=== PATIENT | female | born 1955 | race Hispanic/Latino ===

== ENCOUNTER 2018-11-20 19:29 | Emergency (ER) | payer OTHER ==
[2018-11-20] MEDS ORDERED: ASPIRIN 325 MG TABLET ONE (19:44)
[2018-11-20] MEDS ORDERED: DIAZEPAM 5 MG TABLET ONE (19:44)
[2018-11-20 20:02] LABS: BASOPHILS % (AUTO) 0.6 % (0.0-5.0); EOSINOPHILS % (AUTO) 1.1 % (0.0-8.0); HEMATOCRIT 40.5 % (36-48); LYMPHOCYTES % (AUTO) 22.1 % (21.0-51.0); MEAN CORPUSCULAR HEMOGLOBIN 30.7 pg (27.0-33.0); MEAN CORPUSCULAR HGB CONC 34.3 g/dL (32.0-36.0); MEAN CORPUSCULAR VOLUME 89.6 fL (79-99); MONOCYTES % (AUTO) 6.5 % (3.0-13.0); NEUTROPHILS % (AUTO) 69.7 % (40.0-77.0); NUCLEATED RED BLOOD CELLS 0.1 % (0.0-0.19); PLATELET COUNT (AUTO) 233 K/uL (130-400); RED BLOOD CELL COUNT(AUTO) 4.52 MIL/uL (4.00-5.50); RED CELL DISTRIBUTION WIDTH 13.2 % (11.0-15.5)
[2018-11-20 20:10] LABS: CREATININE 0.8 mg/dL (0.5-1.5); POTASSIUM 3.2 mmol/L (3.5-5.1)
[2018-11-20 20:15] LABS: ALBUMIN 3.9 g/dL (3.5-5.0); BILIRUBIN,TOTAL 0.4 mg/dL (0.2-1.0); TOTAL PROTEIN, SERUM 7.3 g/dL (6.0-8.3)
== END 2018-11-21 00:24 | disposition home or self-care (01) ==
LOC: EDH 19:29
DX: G62.9 Polyneuropathy, unspecified (principal); R51 Headache; M54.2 Cervicalgia
CPT/HCPCS: 36415; 70450; 70551; 80053; 82550; 84484; 85025; 93005

== ENCOUNTER 2018-12-18 06:51 | Inpatient (IN) | payer OTHER ==
[~2018-12-18] VITALS: Ht 160 cm; Wt 59.0 kg
[2018-12-18] MEDS ORDERED: LIDOCAINE HCL 2% VISCOUS 15 ML UDCUP ONE (07:46)
[2018-12-18] MEDS ORDERED: MAG HYDROX/AL HYDROX/SIMETH ES 30 ML SUSP UDCUP ONE (07:47)
[2018-12-18] MEDS ORDERED: ONDANSETRON HCL 4 MG/2 ML VIAL ONE (07:47)
[2018-12-18] MEDS ORDERED: SODIUM CHLORIDE 0.9% 500ML 500 ML IV ONE (07:47)
[2018-12-18 08:06] LABS: APPEARANCE,URINE CLEAR (CLEAR); BILIRUBIN,URINE NEGATIVE (NEGATIVE); COLOR,URINE YELLOW (YELLOW); GLUCOSE, URINE (UA) NEGATIVE (NEGATIVE); KETONES,URINE NEGATIVE (NEGATIVE); LEUKOCYTE ESTERASE ,URINE NEGATIVE (NEGATIVE); NITRATE,URINE NEGATIVE (NEGATIVE); OCCULT BLOOD,URINE MODERATE (NEGATIVE); PROTEIN,URINE NEGATIVE (NEGATIVE); UROBILINOGEN,URINE 0.2 mg/dL (0.2-1.0)
[2018-12-18] MEDS ORDERED: ACETAMINOPHEN 325 MG TAB ONE (08:06)
[2018-12-18 08:27] LABS: CREATININE 0.7 mg/dL (0.5-1.5); POTASSIUM 4.2 mmol/L (3.5-5.1)
[2018-12-18 08:34] LABS: ALBUMIN 3.4 g/dL (3.5-5.0); BASOPHILS % (AUTO) 0.6 % (0.0-5.0); BILIRUBIN,TOTAL 0.2 mg/dL (0.2-1.0); EOSINOPHILS % (AUTO) 3.3 % (0.0-8.0); HEMATOCRIT 39.3 % (36-48); LYMPHOCYTES % (AUTO) 30.1 % (21.0-51.0); MEAN CORPUSCULAR HEMOGLOBIN 30.2 pg (27.0-33.0); MEAN CORPUSCULAR HGB CONC 33.6 g/dL (32.0-36.0); MEAN CORPUSCULAR VOLUME 89.8 fL (79-99); MONOCYTES % (AUTO) 6.3 % (3.0-13.0); NEUTROPHILS % (AUTO) 59.7 % (40.0-77.0); PLATELET COUNT (AUTO) 221 K/uL (130-400); RED BLOOD CELL COUNT(AUTO) 4.37 MIL/uL (4.00-5.50); RED CELL DISTRIBUTION WIDTH 13.4 % (11.0-15.5); TOTAL PROTEIN, SERUM 6.4 g/dL (6.0-8.3); WHITE BLOOD COUNT (AUTO) 7.2 K/uL (4.8-10.8)
[2018-12-18 08:47] LABS: BACTERIA,URINE Many /HPF (None Seen); SQUAMOUS EPITHELIAL CELL,UR Rare /HPF (0-2); WBC,URINE 0-1 /HPF (0-1)
[2018-12-18] MEDS ORDERED: MORPHINE SULFATE 4 MG/1ML SYG ONE (09:52)
[2018-12-18] MEDS: DEXTROSE 5 % AND 0.9 % NACL 1,000 ML IV SCH ×2 (10:45→21:07)
[2018-12-18] MEDS ORDERED: LIDOCAINE HCL 2% VISCOUS 30 ML, MAG HYDROX/AL HYDROX/SIMETH 30 ML, BELLADONNA-PHENOBARB... PO PRN ×3 (10:45)
[2018-12-18] MEDS ORDERED: ACETAMINOPHEN 325 MG TAB PO PRN (10:45)
[2018-12-18 17:42] VITALS: BP 128/64
--- NOTE | 2018-12-18 18:15 | NUR ---
REPORT RECEIVED FROM SOBEIDA VO (ED). PATIENT ADMITTED UNDER DR. GOLDBERG'S SERVICES FOR C/O EPIGASTRIC PAIN AND NAUSEA. DX: ACUTE PANCREATITIS. PATIENT DENIES ANY PAIN AT THIS TIME.
[2018-12-18] MEDS: FAMOTIDINE/PF 20 MG/2 ML VIAL IV SCH (19:33)
[2018-12-18 20:00] VITALS: BP 136/71
[2018-12-18] MEDS ORDERED: SIMETH PO PRN ×3 (20:00)
[2018-12-18] MEDS ORDERED: AL HYDROX PO PRN ×3 (20:00)
[2018-12-18] MEDS ORDERED: MAG HYDROX PO PRN ×3 (20:00)
[2018-12-18] MEDS ORDERED: VISCOUS PO PRN ×3 (20:00)
[2018-12-18] MEDS ORDERED: [UNRECOGNIZED DRUG - OTHER] PO PRN ×3 (20:00)
[2018-12-18] MEDS ORDERED: LIDOCAINE HCL 2% PO PRN ×3 (20:00)
[2018-12-19] VITALS: BP 129/67
[2018-12-19] MEDS: ONDANSETRON HCL 4 MG/2 ML VIAL IV PRN (02:14)
[2018-12-19] MEDS: MORPHINE SULFATE 2 MG/ML 1ML SYG IV PRN (02:15)
[2018-12-19 04:00] VITALS: BP 98/54
[2018-12-19] MEDS: DEXTROSE 5 % AND 0.9 % NACL 1,000 ML IV SCH ×2 (04:57→16:45)
[2018-12-19 07:37] LABS: BASOPHILS % (AUTO) 0.1 % (0.0-5.0); EOSINOPHILS % (AUTO) 0.2 % (0.0-8.0); HEMATOCRIT 37.5 % (36-48); LYMPHOCYTES % (AUTO) 10.9 % (21.0-51.0); MEAN CORPUSCULAR HEMOGLOBIN 30.1 pg (27.0-33.0); MEAN CORPUSCULAR HGB CONC 33.1 g/dL (32.0-36.0); MEAN CORPUSCULAR VOLUME 90.9 fL (79-99); MONOCYTES % (AUTO) 4.8 % (3.0-13.0); PLATELET COUNT (AUTO) 202 K/uL (130-400); RED BLOOD CELL COUNT(AUTO) 4.13 MIL/uL (4.00-5.50); RED CELL DISTRIBUTION WIDTH 13.5 % (11.0-15.5); WHITE BLOOD COUNT (AUTO) 11.3 K/uL (4.8-10.8)
[2018-12-19 07:45] LABS: CREATININE 0.7 mg/dL (0.5-1.5); POTASSIUM 4.3 mmol/L (3.5-5.1)
[2018-12-19 08:00] VITALS: BP 117/58
[2018-12-19] MEDS: FAMOTIDINE/PF 20 MG/2 ML VIAL IV SCH ×2 (08:07→20:34)
[2018-12-19] MEDS: ACETAMINOPHEN 325 MG TAB PO PRN ×2 (08:08→21:37)
[2018-12-19] MEDS: ENOXAPARIN SODIUM 40 MG/0.4 ML SYRINGE SQ SCH (08:12)
[2018-12-19 11:19] LABS: ALBUMIN 2.8 g/dL (3.5-5.0); BILIRUBIN,TOTAL 0.5 mg/dL (0.2-1.0); CREATININE 0.7 mg/dL (0.5-1.5); POTASSIUM 3.3 mmol/L (3.5-5.1); TOTAL PROTEIN, SERUM 5.9 g/dL (6.0-8.3)
[2018-12-19 12:00] VITALS: BP 101/48
[2018-12-19 16:00] VITALS: BP 130/64
--- NOTE | 2018-12-19 16:08 | NUR ---
INITIAL: Met w pt and family this afternoon to discuss dcp. Pt mentions that she lives w spouse. Prior to admission was independent w ambulation and ADLs. Does not own any DME or receive services. Per pt she feels safe and comfortable to return home at [place]. She mentions that if needs any assistance her dtr Jasmin will be able to assist. CM to continue to follow and wait for Md recommendations. Addendum: 12/19/18 at 1610 by CARMEN CROOKS CM Amended: Links added.
[2018-12-19 20:00] VITALS: BP 138/63
[2018-12-19] MEDS: ZOSYN 3.375GM+NS 50ML 50 ML IV SCH (20:34)
[2018-12-19] MEDS ORDERED: LIDOCAINE HCL-MPF 1% 2ML VIAL IVP PRN (23:45)
[2018-12-19] MEDS ORDERED: POTASSIUM CHLORIDE 10% ELIXIR 20 MEQ/15 ML UDCUP PO PRN (23:45)
[2018-12-19] MEDS ORDERED: POTASSIUM CHLORIDE 20MEQ/100ML 100 ML IV PRN (23:45)
[2018-12-20] VITALS (7 sets, daily range): BP systolic 105–140; BP diastolic 58–78
[2018-12-20] MEDS ORDERED: POTASSIUM CHLORIDE 20MEQ/100ML 100 ML IV ONE (00:36)
[2018-12-20] MEDS: DEXTROSE 5 % AND 0.9 % NACL 1,000 ML IV SCH ×2 (03:04→23:28)
[2018-12-20] MEDS: ZOSYN 3.375GM+NS 50ML 50 ML IV SCH ×3 (03:47→20:20)
[2018-12-20 06:20] LABS: BASOPHILS % (AUTO) 0.3 % (0.0-5.0); EOSINOPHILS % (AUTO) 2.6 % (0.0-8.0); HEMATOCRIT 35.4 % (36-48); LYMPHOCYTES % (AUTO) 23.2 % (21.0-51.0); MEAN CORPUSCULAR HGB CONC 33.8 g/dL (32.0-36.0); MEAN CORPUSCULAR VOLUME 91.7 fL (79-99); MONOCYTES % (AUTO) 9.1 % (3.0-13.0); NEUTROPHILS % (AUTO) 64.8 % (40.0-77.0); PLATELET COUNT (AUTO) 180 K/uL (130-400); RED BLOOD CELL COUNT(AUTO) 3.86 MIL/uL (4.00-5.50); RED CELL DISTRIBUTION WIDTH 13.5 % (11.0-15.5); WHITE BLOOD COUNT (AUTO) 7.1 K/uL (4.8-10.8)
[2018-12-20 06:38] LABS: ALBUMIN 2.6 g/dL (3.5-5.0); BILIRUBIN,TOTAL 0.6 mg/dL (0.2-1.0); CREATININE 0.8 mg/dL (0.5-1.5); POTASSIUM 3.5 mmol/L (3.5-5.1); TOTAL PROTEIN, SERUM 5.7 g/dL (6.0-8.3)
[2018-12-20] MEDS: ENOXAPARIN SODIUM 40 MG/0.4 ML SYRINGE SQ SCH ×2 (09:00→09:28)
[2018-12-20] MEDS: FAMOTIDINE/PF 20 MG/2 ML VIAL IV SCH ×2 (09:28→20:20)
--- NOTE | 2018-12-20 10:26 | NUR ---
hold lovenox hemoglobin 7.1 although platelet 180. will notify doctor
[2018-12-20 19:50] LABS: BASOPHILS % (AUTO) 0.5 % (0.0-5.0); EOSINOPHILS % (AUTO) 2.4 % (0.0-8.0); HEMATOCRIT 38.1 % (36-48); LYMPHOCYTES % (AUTO) 23.5 % (21.0-51.0); MEAN CORPUSCULAR HEMOGLOBIN 30.4 pg (27.0-33.0); MEAN CORPUSCULAR HGB CONC 33.5 g/dL (32.0-36.0); NEUTROPHILS % (AUTO) 65.6 % (40.0-77.0); PLATELET COUNT (AUTO) 214 K/uL (130-400); RED BLOOD CELL COUNT(AUTO) 4.18 MIL/uL (4.00-5.50); RED CELL DISTRIBUTION WIDTH 13.1 % (11.0-15.5); WHITE BLOOD COUNT (AUTO) 7.1 K/uL (4.8-10.8)
[2018-12-21] VITALS (27 sets, daily range): BP systolic 105–136; BP diastolic 54–71
[2018-12-21] MEDS: ZOSYN 3.375GM+NS 50ML 50 ML IV SCH ×4 (04:11→20:00)
[2018-12-21 05:24] LABS: BASOPHILS % (AUTO) 0.7 % (0.0-5.0); EOSINOPHILS % (AUTO) 3.2 % (0.0-8.0); HEMATOCRIT 34.7 % (36-48); LYMPHOCYTES % (AUTO) 25.7 % (21.0-51.0); MEAN CORPUSCULAR HEMOGLOBIN 30.9 pg (27.0-33.0); MEAN CORPUSCULAR HGB CONC 34.2 g/dL (32.0-36.0); MEAN CORPUSCULAR VOLUME 90.3 fL (79-99); MONOCYTES % (AUTO) 7.4 % (3.0-13.0); PLATELET COUNT (AUTO) 206 K/uL (130-400); RED BLOOD CELL COUNT(AUTO) 3.84 MIL/uL (4.00-5.50); RED CELL DISTRIBUTION WIDTH 13.2 % (11.0-15.5); WHITE BLOOD COUNT (AUTO) 6.1 K/uL (4.8-10.8)
[2018-12-21 06:11] LABS: ALBUMIN 2.6 g/dL (3.5-5.0); BILIRUBIN,TOTAL 0.4 mg/dL (0.2-1.0); CREATININE 0.8 mg/dL (0.5-1.5); POTASSIUM 3.4 mmol/L (3.5-5.1); TOTAL PROTEIN, SERUM 5.9 g/dL (6.0-8.3)
[2018-12-21] MEDS: ENOXAPARIN SODIUM 40 MG/0.4 ML SYRINGE SQ SCH (09:00)
[2018-12-21] MEDS: FAMOTIDINE/PF 20 MG/2 ML VIAL IV SCH ×2 (09:31→22:15)
[2018-12-21] MEDS: DEXTROSE 5 % AND 0.9 % NACL 1,000 ML IV SCH ×2 (10:04→22:16)
--- NOTE | 2018-12-21 18:15 | NUR ---
PT TAKEN BY BED TO HOLDING AREA FOR LAP JUJU WARD
[2018-12-21] MEDS ORDERED: BACITRACIN 50,000 UNIT VIAL ONE (18:50)
[2018-12-21] MEDS ORDERED: BUPIVACAINE/PF 0.5% 30ML VIAL ONE (18:50)
[2018-12-21] MEDS ORDERED: LIDOCAINE PF 2% 5ML ABBOJECT ONE (18:53)
[2018-12-21] MEDS ORDERED: SUCCINYLCHOLINE 200MG/10ML SYR ONE (18:53)
[2018-12-21] MEDS ORDERED: FENTANYL CITRATE PF 50 MCG/1 ML 2ML VIAL ONE (18:54)
[2018-12-21] MEDS ORDERED: PROPOFOL 10 MG/ML 20ML VIAL IV ONE (18:54)
[2018-12-21] MEDS ORDERED: ROCURONIUM 10MG/1ML SYR 10 MG/ML ML ONE (18:54)
[2018-12-21] MEDS ORDERED: EPHEDRINE SULFATE 50 MG/ML AMPULE ONE (19:22)
[2018-12-21] MEDS ORDERED: VANCOMYCIN PROTOCOL PER PHARMACY IV SCH (19:30)
[2018-12-21] MEDS ORDERED: KETOROLAC TROMETHAMINE 30MG/ML ONE (19:37)
[2018-12-21] MEDS ORDERED: ONDANSETRON HCL 4 MG/2 ML VIAL ONE (19:38)
[2018-12-21] MEDS ORDERED: GLYCOPYRROLATE 1 MG/5 ML SYRINGE ONE (19:38)
[2018-12-21] MEDS ORDERED: NEOSTIGMINE 5MG/5ML SYR IV ONE (19:38)
[2018-12-21] MEDS ORDERED: COMPOUND IV REFRIGERATED 1 EACH IVSOLN MISC PRN (20:00)
[2018-12-21] MEDS ORDERED: VANCOMYCIN 1.5 GM in SODIUM CHLORIDE 0.9% 250 ML IV ONE (20:00)
[2018-12-21] MEDS ORDERED: MEPERIDINE-PF 25 MG/ML SYG ONE ×2 (20:35→20:45)
[2018-12-22] VITALS (8 sets, daily range): BP systolic 110–147; BP diastolic 59–78
[2018-12-22] MEDS ORDERED: TRAMADOL /APAP 37.5MG/325MG TAB ONE (00:13)
[2018-12-22] MEDS ORDERED: TRAMADOL /APAP 37.5MG/325MG TAB PO PRN (00:15)
[2018-12-22] MEDS: ZOSYN 3.375GM+NS 50ML 50 ML IV SCH ×3 (04:36→21:07)
[2018-12-22 06:02] LABS: BASOPHILS % (AUTO) 0.1 % (0.0-5.0); HEMATOCRIT 36.1 % (36-48); LYMPHOCYTES % (AUTO) 3.2 % (21.0-51.0); MEAN CORPUSCULAR HEMOGLOBIN 30.4 pg (27.0-33.0); MEAN CORPUSCULAR HGB CONC 33.6 g/dL (32.0-36.0); MEAN CORPUSCULAR VOLUME 90.6 fL (79-99); MONOCYTES % (AUTO) 3.2 % (3.0-13.0); NEUTROPHILS % (AUTO) 93.5 % (40.0-77.0); PLATELET COUNT (AUTO) 209 K/uL (130-400); RED BLOOD CELL COUNT(AUTO) 3.99 MIL/uL (4.00-5.50); WHITE BLOOD COUNT (AUTO) 15.4 K/uL (4.8-10.8)
[2018-12-22 06:06] LABS: CREATININE 0.9 mg/dL (0.5-1.5); POTASSIUM 3.3 mmol/L (3.5-5.1)
--- NOTE | 2018-12-22 08:00 | NUR ---
AM SHIFT ASSESSMENT.
[2018-12-22] MEDS: VANCOMYCIN 1GM+NS 250ML 250 ML IV SCH ×2 (08:05→17:25)
[2018-12-22] MEDS: DEXTROSE 5 % AND 0.9 % NACL 1,000 ML IV SCH ×2 (08:12→17:52)
[2018-12-22] MEDS: MORPHINE SULFATE 2 MG/ML 1ML SYG IV PRN ×2 (08:35→21:08)
[2018-12-22] MEDS: FAMOTIDINE/PF 20 MG/2 ML VIAL IV SCH ×2 (08:35→21:07)
[2018-12-22] MEDS: POTASSIUM CHLORIDE 20 MEQ ERTAB PO PRN ×3 (08:36→17:26)
[2018-12-22] MEDS: ENOXAPARIN SODIUM 40 MG/0.4 ML SYRINGE SQ SCH (08:36)
--- NOTE | 2018-12-22 16:30 | NUR ---
DR. SLOAN CALLED AND WILL BE GOING OUT OF TOWN FOR THE NEXT SEVERAL DAYS, LEFT [facility] FOR RX. MEDS AND OFFICE APPT. ATTENDING MD TO DISCHARGE WHEN PT. IS READY TO GO.
[2018-12-23] VITALS (8 sets, daily range): BP systolic 104–144; BP diastolic 55–82
[2018-12-23] MEDS: ZOSYN 3.375GM+NS 50ML 50 ML IV SCH ×3 (04:10→20:55)
[2018-12-23] MEDS: DEXTROSE 5 % AND 0.9 % NACL 1,000 ML IV SCH ×2 (04:11→12:20)
[2018-12-23] MEDS: MORPHINE SULFATE 2 MG/ML 1ML SYG IV PRN (04:25)
[2018-12-23 06:34] LABS: BASOPHILS % (AUTO) 0.3 % (0.0-5.0); EOSINOPHILS % (AUTO) 0.8 % (0.0-8.0); HEMATOCRIT 34.7 % (36-48); LYMPHOCYTES % (AUTO) 4.8 % (21.0-51.0); MEAN CORPUSCULAR HEMOGLOBIN 31.2 pg (27.0-33.0); MEAN CORPUSCULAR HGB CONC 34.6 g/dL (32.0-36.0); MEAN CORPUSCULAR VOLUME 90.3 fL (79-99); MONOCYTES % (AUTO) 3.5 % (3.0-13.0); NEUTROPHILS % (AUTO) 90.6 % (40.0-77.0); PLATELET COUNT (AUTO) 173 K/uL (130-400); RED BLOOD CELL COUNT(AUTO) 3.85 MIL/uL (4.00-5.50); WHITE BLOOD COUNT (AUTO) 10.5 K/uL (4.8-10.8)
[2018-12-23 06:50] LABS: CREATININE 0.9 mg/dL (0.5-1.5); POTASSIUM 3.6 mmol/L (3.5-5.1)
[2018-12-23] MEDS: VANCOMYCIN 1GM+NS 250ML 250 ML IV SCH ×2 (08:50→18:13)
[2018-12-23] MEDS: TRAMADOL /APAP 37.5MG/325MG TAB PO PRN ×3 (08:50→18:13)
[2018-12-23] MEDS: FAMOTIDINE/PF 20 MG/2 ML VIAL IV SCH ×2 (08:51→20:55)
[2018-12-23] MEDS: ENOXAPARIN SODIUM 40 MG/0.4 ML SYRINGE SQ SCH (08:51)
--- NOTE | 2018-12-23 10:00 | NUR ---
MEDICATED FOR PAIN TO ABD. AT THIS TIME. JACI IN PLACE TO LUCIUS COMPRESSION . ABD. FEELS A LITTLE TIGHTER THAN YESTERDAY.
[2018-12-23] MEDS: ONDANSETRON HCL 4 MG/2 ML VIAL IV PRN (10:54)
[2018-12-23] MEDS ORDERED: BISACODYL 10 MG SUPP.RECT RC ONE (11:04)
--- NOTE | 2018-12-23 16:00 | NUR ---
HAS BEEN UNCOMFORTABLE MOST OF DAY, HAS BEEN UP AND DID SOME WALKING AND TOOK A SHOWER BUT CONTINUED TO C/O OF PAIN. NO BM AFTER GIVEN DULCOLAX SUPP. ABD XR WAS ORDERED AND AJ NOTIFIED OF RESULTS
--- NOTE | 2018-12-23 18:30 | NUR ---
PLACED ON NPO STATUS.
[2018-12-24 00:10] VITALS: BP 127/57
[2018-12-24] MEDS: DEXTROSE 5 % AND 0.9 % NACL 1,000 ML IV SCH ×3 (03:07→17:27)
[2018-12-24 04:00] VITALS: BP 145/73
[2018-12-24] MEDS: VANCOMYCIN 1GM+NS 250ML 250 ML IV SCH ×2 (05:13→18:57)
[2018-12-24] MEDS: ZOSYN 3.375GM+NS 50ML 50 ML IV SCH ×3 (05:13→20:43)
[2018-12-24 07:30] VITALS: BP 155/71
[2018-12-24] MEDS: FAMOTIDINE/PF 20 MG/2 ML VIAL IV SCH ×2 (09:44→20:43)
[2018-12-24] MEDS: ENOXAPARIN SODIUM 40 MG/0.4 ML SYRINGE SQ SCH (09:45)
[2018-12-24] MEDS: ONDANSETRON HCL 4 MG/2 ML VIAL IV PRN ×2 (09:52→20:43)
[2018-12-24 11:00] VITALS: BP 148/78
--- NOTE | 2018-12-24 13:55 | NUR ---
Nutrition Intervention: Nutrition screen based on LOS x 6 days. Pt. admitted with Dx of Pancreatitis. Pt. on Clear Liquids diet with poor p.o. intake, as per pt. due to abd. pain. Pt. S/P Lap Jessie(12/21/18). As per MD notes, abd. X-ray on 12/23/18 showed pt. has post-op ileus. Labs reviewed(Alb 2.6, Na 134, Lipase 438). Noted Lipase level improving. LBM: 12/18/18. SR-18, right abd. JACI drain. BMI: 23, normal for age. Recommendations: 1) Rec. advance diet as tolerated to Low Fat Soft Thayer diet. 2) Rec. Ensure Clear QD with B'fast meal. 3) Rec. stool softener to help alleviate lower GI distress. 4) Continue to monitor pt's nutritional status and diet advancement. 5) Consult RD as nutrition concerns arise. Addendum: 12/24/18 at [address] Amended: Links added.
[2018-12-24] MEDS ORDERED: DOCUSATE SODIUM 100 MG CAP PO SCH (14:15)
[2018-12-24] MEDS: MORPHINE SULFATE 2 MG/ML 1ML SYG IV PRN (15:35)
--- NOTE | 2018-12-24 15:55 | NUR ---
NOTIFIED AJ CONSOLE MANAGER REGARDING PATIENTS RIGHT UPPER ABD PAIN. COLACE STOOL SOFTNER GIVEN AND ENCOURAGED PATIENT TO AMBULATE IN HALLWAY. PATIENT IS BURPING BUT HAS NOT HAD BM OF NOW.
--- NOTE | 2018-12-24 15:59 | NUR ---
DR. EVANS NOTIFIED OF PATIENTS RIGHT UPPER ABD PAIN.;. NEW ORDERS GIVEN. MAG CITRATE AND INCREASE TO FULL LIQUID DIET AND AMBULATIE. ABD IS SOFT.
[2018-12-24 16:00] VITALS: BP 147/68
[2018-12-24] MEDS ORDERED: MAGNESIUM CITRATE 296 ML SOLUTION PO SCH (16:00)
[2018-12-24 20:46] VITALS: BP 149/77
[2018-12-25] VITALS: BP 134/70
[2018-12-25] MEDS: DEXTROSE 5 % AND 0.9 % NACL 1,000 ML IV SCH ×2 (02:45→13:15)
[2018-12-25 04:34] VITALS: BP 133/74
[2018-12-25] MEDS ORDERED: DIPHENHYDRAMINE HCL 25 MG CAPSULE PO ONE (05:30)
[2018-12-25] MEDS: VANCOMYCIN 1GM+NS 250ML 250 ML IV SCH (05:31)
[2018-12-25] MEDS: ZOSYN 3.375GM+NS 50ML 50 ML IV SCH ×2 (05:31→12:36)
[2018-12-25 08:00] VITALS: BP 152/76
[2018-12-25] MEDS: FAMOTIDINE/PF 20 MG/2 ML VIAL IV SCH (08:32)
[2018-12-25] MEDS: ACETAMINOPHEN 325 MG TAB PO PRN (08:33)
[2018-12-25] MEDS: ENOXAPARIN SODIUM 40 MG/0.4 ML SYRINGE SQ SCH (08:34)
[2018-12-25 12:00] VITALS: BP 169/59
--- NOTE | 2018-12-25 19:42 | NUR ---
DISCHARGE INSTRUCTIONS GIVEN. PATIENT INSTRUCTED TO CALL DR. EVANS OFFICE ON THURSDAY AND SET UP A FOLLOW UP APPT AND TO FOLLOW UP WITH PCP. INSTRUCTED ON HOW TO EMPTY JACI DRAIN. PRESCRIPTIONS CALLED IN TO [facility] IN [place].
== END 2018-12-25 18:40 | disposition home or self-care (01) | DRG 417 ==
LOC: EDH 06:51 → EDHIP 10:35 → 3BH 17:32
PROVIDERS: ADMIT Family Medicine; ATTEND Family Medicine
PROC: 0FT44ZZ Resection of Gallbladder, Percutaneous Endoscopic Approach (ICD-10-PCS; principal; 2018-12-21 19:01)
DX: K80.00 Calculus of gallbladder with acute cholecystitis without obstruction (principal); K85.10 Biliary acute pancreatitis without necrosis or infection; K56.7 Ileus, unspecified; E87.6 Hypokalemia; Z87.891 Personal history of nicotine dependence; Z80.3 Family history of malignant neoplasm of breast; Z80.0 Family history of malignant neoplasm of digestive organs; Z82.49 Family history of ischemic heart disease and other diseases of the circulatory system; Z83.3 Family history of diabetes mellitus
CPT/HCPCS: 36415; 71045; 74018; 74176; 74181; 76705; 80048; 80053; 80202; 81001; 82150; 83690; 84484; 85025; 88304; 93005; G0378; J0330; J1650; J1885; J2001; J2175; J2270; J2405; J2543; J2704; J2710; J3010; J3370; J3480; J3490; J7030; J7040; J7042; J7120

== ENCOUNTER 2020-09-10 15:13 | Emergency (ER) | payer MEDICARE, OTHER ==
[2020-09-10 15:47] LABS: BASOPHILS % (AUTO) 0.2 % (0.0-5.0); EOSINOPHILS % (AUTO) 0.5 % (0.0-8.0); HEMATOCRIT 40.1 % (36-48); LYMPHOCYTES % (AUTO) 10.6 % (21.0-51.0); MEAN CORPUSCULAR HEMOGLOBIN 29.1 pg (27.0-33.0); MEAN CORPUSCULAR HGB CONC 33.4 g/dL (32.0-36.0); NEUTROPHILS % (AUTO) 83.4 % (40.0-77.0); PLATELET COUNT (AUTO) 270 K/uL (130-400); RED BLOOD CELL COUNT(AUTO) 4.61 MIL/uL (4.00-5.50); RED CELL DISTRIBUTION WIDTH 12.9 % (11.0-15.5); WHITE BLOOD COUNT (AUTO) 11.3 K/uL (4.8-10.8)
[2020-09-10] MEDS ORDERED: SODIUM CHLORIDE 0.9% 1000ML 1,000 ML IV ONE (15:47)
[2020-09-10 15:56] LABS: POTASSIUM 3.3 mmol/L (3.5-5.1)
[2020-09-10] MEDS ORDERED: PROCHLORPERAZINE EDISYLATE 10 MG/2 ML VIAL ONE (15:59)
[2020-09-10] MEDS ORDERED: DiphenhydrAMINE HCL 50 MG/ML VIAL ONE (15:59)
[2020-09-10 16:00] LABS: INR 1.06 (0.85-1.15); PARTIAL THROMBOPLASTIN TIME 27.2 SEC (26.3-35.5)
[2020-09-10 16:01] LABS: ALBUMIN 3.8 g/dL (3.5-5.0); BILIRUBIN,TOTAL 0.4 mg/dL (0.2-1.0); TOTAL PROTEIN, SERUM 7.5 g/dL (6.0-8.3)
[2020-09-10] MEDS ORDERED: POTASSIUM CHLORIDE 20 MEQ ERTAB PO ONE (16:29)
== END 2020-09-10 18:28 | disposition home or self-care (01) ==
LOC: EDH 15:13
DX: R55 Syncope and collapse (principal); R51.9 Headache, unspecified; E87.6 Hypokalemia
CPT/HCPCS: 36415; 70450; 80053; 84484; 85025; 85610; 85730; 93005; 96361; 96374; 96375; 99285; J0780; J1200; J7030

== ENCOUNTER 2022-11-22 13:31 | Emergency (ER) | payer MEDICARE ==
[~2022-11-22] VITALS: Ht 160 cm; Wt 59.0 kg
[2022-11-22 15:53] LABS: APPEARANCE,URINE CLEAR (CLEAR); BILIRUBIN,URINE NEGATIVE (NEGATIVE); GLUCOSE, URINE (UA) NEGATIVE (NEGATIVE); KETONES,URINE 5 mg/dL (NEGATIVE); LEUKOCYTE ESTERASE ,URINE 25 Leu/uL (NEGATIVE); NITRATE,URINE NEGATIVE (NEGATIVE); OCCULT BLOOD,URINE NEGATIVE (NEGATIVE); PROTEIN,URINE NEGATIVE (NEGATIVE); UROBILINOGEN,URINE 0.2 mg/dL (0.2-1.0)
[2022-11-22 15:55] LABS: COLOR,URINE LIGHT-YELLOW (YELLOW)
[2022-11-22 15:56] LABS: BACTERIA,URINE RARE /HPF (None Seen); MUCUS,URINE RARE LPF (None Seen); RBC,URINE 0-1 /HPF (0-1); SQUAMOUS EPITHELIAL CELL,UR RARE /HPF (0-2)
[2022-11-22 16:11] LABS: BASOPHILS % (AUTO) 0.3 % (0.0-5.0); EOSINOPHILS % (AUTO) 1.3 % (0.0-8.0); HEMATOCRIT 37.4 % (36-48); MEAN CORPUSCULAR HEMOGLOBIN 30.4 pg (27.0-33.0); MEAN CORPUSCULAR HGB CONC 33.7 g/dL (32.0-36.0); MEAN CORPUSCULAR VOLUME 90.1 fL (79-99); MONOCYTES % (AUTO) 5.5 % (3.0-13.0); NEUTROPHILS % (AUTO) 70.6 % (40.0-77.0); PLATELET COUNT (AUTO) 239 K/uL (130-400); RED BLOOD CELL COUNT(AUTO) 4.15 MIL/uL (4.00-5.50); RED CELL DISTRIBUTION WIDTH 13.1 % (11.0-15.5); WHITE BLOOD COUNT (AUTO) 9.8 K/uL (4.8-10.8)
[2022-11-22 16:28] LABS: CREATININE 0.8 mg/dL (0.5-1.5); POTASSIUM 3.5 mmol/L (3.5-5.1)
[2022-11-22 16:32] LABS: ALBUMIN 3.6 g/dL (3.5-5.0); TOTAL PROTEIN, SERUM 7.2 g/dL (6.0-8.3)
[2022-11-22 17:01] VITALS: BP 132/74
[2022-11-22] MEDS ORDERED: 0.9%NACL 1000ML 1,000 ML IV ONE (17:30)
== END 2022-11-22 18:45 | disposition home or self-care (01) ==
LOC: EDH 13:31
DX: E86.0 Dehydration (principal); Z20.822 Contact with and (suspected) exposure to COVID-19; X30.XXXA Exposure to excessive natural heat, initial encounter; Y93.89 Activity, other specified; Y92.89 Other specified places as the place of occurrence of the external cause; Y99.8 Other external cause status
CPT/HCPCS: 99284; 96360; 70450; 71045; 87635; 84484; 80053; 85025; 87880; 87804 ×2; 83605; 81001; 36415; C9803; J7030